=== PATIENT | male | born 1985 | race Two or more races ===

== ENCOUNTER 2016-10-07 09:18 | Emergency (ER) | payer SELFPAY ==
[2016-10-07 09:29] VITALS: BMI 39.2
[2016-10-07 09:30] VITALS: BP 129/85; PULSE 63; TEMP 97.5
--- NOTE | 2016-10-07 10:02 | DIRPT ---
CLINICAL DATA: Pain for 2-3 years put in the right knee. Initial encounter. EXAM: RIGHT KNEE - COMPLETE 4+ VIEW COMPARISON: None. FINDINGS: There is no evidence of fracture, malalignment, or joint effusion. Minor spurring of the lateral tibial spine without joint narrowing. IMPRESSION: No acute finding or degenerative joint narrowing. Electronically Signed By: Kael Aguila M.D. On: 10/07/2016 09:59
--- NOTE | 2016-10-07 10:18 | EDPRACDOC ---
- General Information Chief Complaint: Knee Pain Stated Complaint: FALL,RT KNEE KNEE Time Seen by Provider: 10/07/16 09:26 Information Source: Patient Home Medications: Home Medications Meloxicam [Mobic] 7.5 mg PO BID #20 tab 10/07/16 - History of Present Illness Onset: 2 years HPI: PT PRESENTS TODAY WITH AOC RIGHT KNEE PAIN X 2 YEARS. PT STATES THAT HE HAS ALWAYS HAD THIS PAIN, BUT HAS NEVER BEEN EVALUATED. DENIES INJURY, FEVER, SWELLING. WORSE OVER THE PAST WEEK. NO APPARENT DISTRESS. Knee Problem Location: Right Mechanism: Reports: None Circumstances: Reports: None Relevant History: Reports: None Able to Bear Weight: Fully Pain Severity: Reports: Moderate Associated Signs & Symptoms: Reports: None ED Past Medical History - History Reviewed Yes Nurses notes reviewed and agree except as marked - Patient Medical History Psychological History: Denies: Depression - Social Medical History Smoking Status: Never smoker EDM Review of Systems - Review of Systems ROS Negative Except as Marked: Yes All systems reviewed and were negative except as marked Constitutional: No Symptoms Reported Neurological: No Symptoms Reported Musculoskeletal: Knee Integumentary: No Symptoms Reported - Physical Exam Constitutional: Alert (Awake), No apparent distress Oriented to: Time, Person, Place Last recorded Vital Signs: Last Vital Signs Temp 97.5 F 10/07/16 09:29 Pulse 63 10/07/16 09:29 Resp 16 10/07/16 09:29 BP 129/85 10/07/16 09:29 Pulse Ox 96 10/07/16 09:29 Oxygen Pulse Oxygen Saturation 96 O2 Device Oxygen Flow Rate Fraction of Inspired Oxygen ( FIO2) - HEENT Head: Normal Eye Exam: Normal Neck: Normal, Denies Pain, Midline - Respiratory/Cardiovascular Respiratory: Normal - CTA Cardiovascular: Normal - GI Palpation: Normal Tenderness: Non tender - Musculoskeletal Back: Normal Extremities: Other (NO APPARENT SWELLING/BRUISING/ERYTHEMA TO KNEE; PT STATES PAIN WORSE WITH FLEXION; PEDAL PULSES INTACT) - Integumentary Skin: Normal Lymphatics: Normal - Neurologic Mood Description: Normal Thought: Coherent Perception: Normal ED Knee Problem Phys Exam - Musculoskeletal Knee: Limited ROM, Mild Tenderness Knee Ligaments: Normal Knee Meniscus: Normal Thigh: Normal Lower Leg: Normal Distal Function/Circulation: Normal Decision Time to Discharge: 10:20 - Departure Disposition: Home Condition: Good Final Diagnosis: Knee pain Qualifiers: Laterality: right Chronicity: chronic Qualified Code(s): M25.561 - Pain in right knee; G89.29 - Other chronic pain Instructions: RICE: Routine Care for Injuries Education/Counseling Given To: Patient Education/Counseling Given Regarding: Diagnosis, Treatment, Follow Up Referrals: None,No Provider [Primary Care Provider] - One Week Ted Bustamante MD [Staff Physician] - One Week Prescriptions: Meloxicam [Mobic] 7.5 mg PO BID #20 tab Additional Instructions: PLEASE FOLLOW UP WITH ORTHO.
== END 2016-10-07 10:30 | disposition home or self-care (01) ==
LOC: ED 09:18
DX: M25.561 Pain in right knee (principal)
CPT/HCPCS: 99283